=== PATIENT | male | born 1950 | race Caucasian/White ===

== ENCOUNTER 2018-04-26 05:39 | Outpatient (CLI) | payer OTHER ==
[~2018-04-26] VITALS: Ht 180.3 cm; Wt 120.7 kg
[2018-04-26] MEDS ORDERED: AMLO10TA2 PO (13:16)
[2018-04-26] MEDS ORDERED: ASPI1CPM6 PO (13:16)
[2018-04-26] MEDS ORDERED: FLUT16SP22 NSEACH (13:16)
[2018-04-26] MEDS ORDERED: PARO40TA3 PO (13:16)
[2018-04-26] MEDS ORDERED: RANI-515 PO (13:16)
[2018-04-26] MEDS ORDERED: CLON1TAB4 PO (13:16)
[2018-04-26] MEDS ORDERED: TRAZ-190 PO (13:16)
[2018-04-26] MEDS ORDERED: TRAM50TA2 PO (13:16)
[2018-04-26] MEDS ORDERED: ATOR80TA76 PO (13:16)
[2018-04-26] MEDS ORDERED: DIVA250T12 PO (13:16)
== END 2018-04-26 13:17 | disposition home or self-care (01) ==
LOC: PREOP 05:39
PROVIDERS: ATTEND Surgery
DX: Z01.818 Encounter for other preprocedural examination (principal)